=== PATIENT | female | born 1990 | race Two or more races ===

== ENCOUNTER 2019-03-16 08:42 | Inpatient (IN) | payer OTHER ==
[~2019-03-16] VITALS: Ht 160 cm; Wt 5.0 kg
--- NOTE | 2019-03-16 08:52 | NUR ---
PTE REFIERE SUKH DOLOR ABDOMINAL DESDE KHADIJAH SE CUAUHTEMOC S/V YSE UBIAC EN AREA DE OBSERVACION
--- NOTE | 2019-03-16 09:34 | NUR ---
EVALUADA POR EL SE ORIENTA SOBRE TRATAMIENTO MEDICO POR LE EXTRAE MUESTRAS DE MIRTHA Y SE ENVIAN AL LABORATORIO. SE MANTIENE EN OBSERVACION.
[2019-03-23] MEDS ORDERED: LEVAQUIN500 MG PO (09:59)
[2019-03-23] MEDS ORDERED: PROTONIX40 MG PO (09:59)
== END 2019-03-23 14:18 | disposition home or self-care (01) | DRG 340 ==
LOC: ER 08:42 → SEC-K 14:08 → SURH 14:08 → SURG 03-18 13:35
PROVIDERS: ADMIT Surgery
PROC: BW21ZZZ Computerized Tomography (CT Scan) of Abdomen and Pelvis (ICD-10-PCS; 2019-03-16)
PROC: BU4CZZZ Ultrasonography of Uterus and Ovaries (ICD-10-PCS; 2019-03-16)
PROC: 0DTJ0ZZ Resection of Appendix, Open Approach (ICD-10-PCS; principal; 2019-03-16 14:00)
DX: K35.32 Acute appendicitis with perforation, localized peritonitis, and gangrene, without abscess (principal); K66.0 Peritoneal adhesions (postprocedural) (postinfection)